=== PATIENT | female | born 1990 | race Caucasian/White ===

== ENCOUNTER 2017-03-10 11:22 | Emergency (ER) | payer OTHER ==
[~2017-03-10] VITALS: Ht 162.6 cm; Wt 84.0 kg
[~2017-03-10 11:22] MED LIST: ENDOCET 5-3251 EACH PO; KEFLEX500 MG PO; MOTRIN800 MG PO; NAPROSYN500 MG PO; PERCOCET 5/31 TABLET PO
[2017-03-10] MEDS ORDERED: VALIUM5 MG PO (13:40)
[2017-03-10] MEDS ORDERED: ULTRAM50 MG PO (13:40)
[2017-03-10] MEDS ORDERED: PREDNISONE10 MG PO (13:40)
[2017-03-10 13:52] VITALS: BP 137/81
== END 2017-03-10 13:53 | disposition home or self-care (01) ==
LOC: EME 11:22
DX: M54.5 Low back pain (principal); M62.830 Muscle spasm of back
CPT/HCPCS: 99281; 99284; J1885